=== PATIENT | male | born 1990 | race Caucasian/White ===

== ENCOUNTER 2017-02-20 18:43 | Emergency (ER) | payer OTHER, BC ==
[2017-02-20 18:59] VITALS: BP 142/79
--- NOTE | 2017-02-20 19:44 | EDM.PDOC ---
ED HPI GENERAL MEDICAL PROBLEM - General Chief Complaint: Bite:Animal, Insect Stated Complaint: BIT BY DOG-RIGHT HAND Time Seen by Provider: 02/20/17 19:25 Source of Information: Reports: Patient History Limitations: Reports: No Limitations - History of Present Illness INITIAL COMMENTS - FREE TEXT/NARRATIVE: 26 year old male presents for evaluation and treatment of a dog bit to the right hand. Reports the dog was a friend's. States he but his hand out for the dog to smell him and the dog bit down. He felt the bite barely broke the skin therefore he was not seen yesterday after the incident. The dog is a lab mix and the dog's immunizations are up to date. Patient appreciated pain, erythema and swelling to the right hand this morning. He report purulent discharge from one of two wounds. He reports he attempted to close the wounds with super glue. Current symptoms included discharge from the wound, pain, erythema and swelling to the right hand. Denies any fevers, chills, nausea or vomiting. Unsure of last tetanus. Patient is right handed. Right Hand Pain Score (Numeric/FACES): 1 - Related Data Allergies Allergy/AdvReac Type Severity Reaction Status Date / Time No Known Allergies Allergy Verified 09/10/15 05:27 Home Meds: Home Meds Amoxicillin/Potassium Clav [Augmentin 875-125 Tablet] 1 each PO BID #20 tablet 02/20/17 [Rx] Past Medical History - Past Health History Medical/Surgical History: Denies Medical/Surgical History Cardiovascular History: Reports: Hypertension - Past Surgical History Musculoskeletal Surgical History: Reports: Other (See Below) Other Musculoskeletal Surgeries/Procedures:: rt arm sx Social & Family History - Family History Family Medical History: Noncontributory - Tobacco Use Smoking Status *Q: Never Smoker - Recreational Drug Use Recreational Drug Use: No ED ROS GENERAL - Review of Systems Review Of Systems: See Below Constitutional: Denies: Fever, Chills GI/Abdominal: Denies: Nausea, Vomiting Musculoskeletal: Reports: Hand Pain (right hand ), Joint Swelling (right hand swelling) Skin: Reports: Erythema (right hand ), Wound (2 puncture wounds - one to the ventral side and one to the dorsal side both about 0.5 cm in diameter) Neurological: Denies: Numbness, Tingling ED EXAM, ANIMAL BITE - Physical Exam Exam: See Below Exam Limited By: No Limitations General Appearance: Alert, WD/WN, No Apparent Distress Throat/Mouth: Normal Inspection, Normal Voice, No Airway Compromise Respiratory/Chest: No Respiratory Distress, Lungs Clear, Normal Breath Sounds Cardiovascular: Normal Peripheral Pulses, Regular Rate, Rhythm, No Murmur Peripheral Pulses: 2+: Radial (L), Radial (R) Extremities: Normal Capillary Refill, 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), Other (right hand swelling, moderate) Neurological: Alert, Oriented, Normal Cognition Psychiatric: Normal Affect, Normal Mood Skin Exam: Normal Color, Warm/Dry, Other (right hand erythema; two 0.5cm in diatmeter puncture wounds to the dorsal and ventral right hand, closed, no current drainage) Course - Vital Signs Last Recorded V/S: Last Vital Signs Temp 36.1 C 02/20/17 18:56 Pulse 66 02/20/17 18:56 Resp 16 02/20/17 18:56 BP 142/79 H 02/20/17 18:56 Pulse Ox 96 02/20/17 18:56 - Orders/Labs/Meds Meds: Medications Discontinued Medications Generic Name Dose Route Start Last Admin Trade Name Syedq PRN Reason Stop Dose Admin Diphtheria/Tetanus/Acell Pertussis 0.5 ml 02/20/17 20:07 02/20/17 20:14 Adacel IM 02/20/17 20:08 0.5 ml .ONCE ONE Administration - Re-Assessments/Exams Free Text/Narrative Re-Assessment/Exam: 02/20/17 20:00 Plan update tetanus. Start 10 days of augmentin. Warned of upset stomach side effects. I will place the patient in a removable wrist splint so he can monitor and clean the wounds. Follow-up with PCP. Discharge instructions as documented. Departure - Departure Time of Disposition: 19:39 Disposition: Home, Self-Care 01 Condition: Fair Clinical Impression: Cellulitis and abscess of hand, Dog bite - Discharge Information Prescriptions: Amoxicillin/Potassium Clav [Augmentin 875-125 Tablet] 1 each PO BID #20 tablet Instructions: Animal Bite, [id number], Abscess, [id number], Cellulitis, Adult, [id number] Referrals: PCP,None [Primary Care Provider] - Alvino Mcneal MD [Physician] - Forms: ED Department Discharge Additional Instructions: Take the Augmentin as prescribed. 1 tab twice a day for 10 days. I recommend you take this with food. I also recommend you start an [id number] probiotic or take yogurt to help reduce upset stomach, nausea and diarrhea side effects. Wear the wrist splint to help prevent any movement. Reduce movement as much as you are able to. You may remove the splint for icing and monitoring of the wound. [id number] Tylenol or Motrin as needed for pain relief. Follow-up with your primary care provider for recheck of your symptoms the end of this week or early next week. Please return to the ER if your symptoms change or worsen.
[2017-02-20] MEDS ORDERED: Diphtheria,Pertussis(Acell),Tetanus Vaccine 0.5 ML SDV IM ONE (20:07)
== END 2017-02-20 21:27 | disposition home or self-care (01) ==
LOC: JD.ED 18:43
DX: S61.431A Puncture wound without foreign body of right hand, initial encounter (principal); L03.113 Cellulitis of right upper limb; L02.511 Cutaneous abscess of right hand; Z23 Encounter for immunization; W54.0XXA Bitten by dog, initial encounter
CPT/HCPCS: 90471; 90715; 99283; 99283-25